=== PATIENT | male | born 1940 | race Caucasian/White ===

== ENCOUNTER 2017-01-22 09:01 | Observation (INO) | payer MEDICARE, BC ==
[~2017-01-22 09:01] MED LIST: ASPIR 8181 MG PO; CALCIUM + D3 E1 EACH PO; CLOTRIMAZOLE-BE45 GM TP; COLACE100 M1 PO; DECADRON4 MG PO; IBUPROFEN600 MG PO; INDOCIN50 MG PO; LIPITOR80 M1 PO; LOSARTAN POTAS100 M1 PO; LOTRISONE15 GM TOP; MELOXICAM15 M1 PO; NORCO 5-325 TA1 EACH PO; NORCO 5/325 TAB1 TAB PO; OSTEO BI-FLEX1 EAC2 PO; PLAVIX75 M1 PO; PLAVIX75 MG PO; POTASSIUM CHLO20 MEQ PO; PRAVACHOL80 MG PO; ROBAXIN750 MG/TAB PO; SIMVASTATIN40 MG PO; TRIAMTERENE-HC1 EAC3 PO; VASOTEC2.5 MG PO; VASOTEC20 MG PO; VERAPAMIL HCL360 MG PO; VITAMIN E200 UNI1 PO
[2017-01-22 10:07] LABS: BASO % 0.6 % (0-2); BASO ABSOLUTE COUNT 0.1 tho/cmm (0.0-0.2); EOS % 6.1 % (0-7); EOSINOPHIL ABSOLUTE COUNT 0.6 tho/cmm (0.0-0.7); HCT-HEMATOCRIT 41.7 % (36.0-53.5); HGB-HEMOGLOBIN 13.8 gm/dl (13.5-17.0); IMMATURE GRANULOCYTES ABSOLUTE 0.02 tho/cmm (0-0.03); IMMATURE GRANULOCYTES PERCENT 0.2 % (0-0.3); LYMPH % 10.9 % (20-45); MCH (MEAN CORPUSCULAR HGB) 28.9 pg (28.0-32.0); MCHC MEAN CORPUSCULAR HGB CONC 33.1 % (32.0-36.0); MCV (MEAN CELL VOLUME) 87.4 fl (82.0-96.0); MEAN PLATELET VOLUME 9.9 cmc (9.4-12.4); MONO % 7.8 % (0-12); MONOCYTE ABSOLUTE COUNT 0.7 tho/cmm (0.0-1.2); NEUTROPHIL ABSOLUTE COUNT 7.1 tho/cmm (1.6-8.0); NEUTROPHIL-AUTOMATED 7.1 tho/cmm (1.6-8.0); NEUTROPHILS % 74.4 % (40-80); PLATELET COUNT 283 tho/cmm (150-450); RED BLOOD COUNT 4.77 mil/cmm (4.40-5.70); RED CELL DISTRIBUTION WIDTH 13.4 % (12.4-16.4); WHITE BLOOD COUNT 9.5 tho/cmm (4.0-10.0)
[2017-01-22 10:27] LABS: ANION GAP 11 mmol/L (0-20); BLOOD UREA NITROGEN 26 mg/dl (6-24); CALCIUM 9.2 mg/dl (8.5-10.5); CARBON DIOXIDE-VENOUS 32 mmol/L (22-32); CHLORIDE 104 mmol/l (96-110); CREATININE 1.23 mg/dl (0.60-1.30); GLUCOSE 105 mg/dL (70-110); SODIUM 144 mmol/L (135-145); eGFR VALUE FOR BLACK 65 mL/Min
[2017-01-22] MEDS ORDERED: FLUOCINOLONE AC15 G1 TP (11:58)
[2017-01-22] MEDS ORDERED: NORVASC5 M2 PO (11:58)
[2017-01-23 08:50] LABS: C-REACTIVE PROTEIN 3.2 mg/dl (0-0.9)
[2017-01-23] MEDS ORDERED: PREDNISONE10 M1 PO (17:07)
[2017-01-23 17:21] LABS: ALBUMIN 3.5 g/dl (3.5-5.0); BILIRUBIN,DIRECT 0.3 mg/dl (0.0-0.3); BILIRUBIN,INDIRECT 0.8 mg/dL (0.0-1.0); BILIRUBIN,TOTAL 1.1 mg/dl (0.0-1.5); MAGNESIUM 2.1 mg/dl (1.3-2.6)
== END 2017-01-23 17:34 ==
LOC: EDMED 09:01 → EMR2 12:14 → CAR1 14:10
PROVIDERS: Emergency Medicine; Internal Medicine Rheumatology; ADMIT Internal Medicine Cardiovascular Disease
DX: R60.0 Localized edema (principal); I45.10 Unspecified right bundle-branch block; R79.89 Other specified abnormal findings of blood chemistry; I44.4 Left anterior fascicular block; I10 Essential (primary) hypertension; E78.5 Hyperlipidemia, unspecified; M19.90 Unspecified osteoarthritis, unspecified site; R53.83 Other fatigue; Z79.02 Long term (current) use of antithrombotics/antiplatelets; Z79.1 Long term (current) use of non-steroidal anti-inflammatories (NSAID); Z79.899 Other long term (current) drug therapy; Z77.090 Contact with and (suspected) exposure to asbestos; Z87.891 Personal history of nicotine dependence; Z86.73 Personal history of transient ischemic attack (TIA), and cerebral infarction without residual deficits; Z90.49 Acquired absence of other specified parts of digestive tract; Z90.89 Acquired absence of other organs; Z98.890 Other specified postprocedural states
CPT/HCPCS: A9500; G0378; J2785; J7512